=== PATIENT | male | born 1995 | race Hispanic/Latino ===

== ENCOUNTER 2021-11-09 16:12 | Emergency (ER) | payer OTHER ==
[~2021-11-09] VITALS: Ht 180.3 cm; Wt 72.6 kg
[2021-11-09] MEDS ORDERED: ACETAMINOPHEN 325 MG TAB PO ONE (16:30)
[2021-11-09] MEDS ORDERED: SODIUM CHLORIDE 0.9% 1000ML 1,000 ML IV ONE (16:45)
[2021-11-09] MEDS ORDERED: DIAZEPAM 5 MG TAB PO ONE (16:45)
[2021-11-09 16:49] LABS: BASOPHILS % 0.3 % (0.0-1.0); EOSINOPHILS # (AUTO) 0.8 (0.0-0.4); EOSINOPHILS % 5.1 % (0.0-6.0); HEMATOCRIT 42.1 % (38.2-49.6); HEMOGLOBIN 13.6 g/dL (14.0-18.0); MEAN CORPUSCULAR HEMOGLOBIN 29.1 pg (28-32); MEAN CORPUSCULAR HGB CONC 32.3 g/dL (31-35); MONOCYTES # (AUTO) 0.9 (0.2-0.8); NEUTROPHILS # (AUTO) 10.3 (2.1-6.9); NEUTROPHILS % 68.1 % (38.7-80.0); PLATELET COUNT 451 x10e3/uL (140-360); RED BLOOD COUNT 4.68 x10e6/uL (4.3-5.7); RED CELL DISTRIBUTION WIDTH 13.7 % (11.7-14.4)
[2021-11-09] MEDS ORDERED: ACETAMINOPHEN 325 MG TAB ONE (16:49)
[2021-11-09] MEDS ORDERED: SODIUM CHLORIDE 0.9% 1000ML 1,000 ML ONE (16:50)
[2021-11-09 16:56] LABS: INR 0.94; PARTIAL THROMBOPLASTIN TIME 31.5 seconds (23.8-35.5); PROTHROMBIN TIME 13.4 seconds (11.9-14.5)
[2021-11-09 17:04] LABS: ANION GAP 15.8 mmol/L (8-16); CALCIUM 8.9 mg/dL (8.4-10.2); CREATININE, SERUM 0.85 mg/dL (0.72-1.25); POTASSIUM 3.8 mmol/L (3.5-5.1)
[2021-11-09] MEDS ORDERED: AFRIN15 ML INH (17:36)
== END 2021-11-09 17:55 | disposition home or self-care (01) ==
LOC: ER 16:13
DX: R04.0 Epistaxis (principal); F14.10 Cocaine abuse, uncomplicated; J32.9 Chronic sinusitis, unspecified
CPT/HCPCS: 36415; 71045; 80048; 82550; 84484; 85025; 85610; 85730; 99284; J7030; 93005

== ENCOUNTER 2024-04-08 19:01 | Emergency (ER) | payer SELFPAY ==
[~2024-04-08] VITALS: Ht 180.3 cm; Wt 106.6 kg
[~2024-04-08 19:01] MED LIST: AFRIN15 ML INH
[2024-04-08 19:19] VITALS: PULSE 84; RESP 18; TEMP 98
[2024-04-08] MEDS ORDERED: DOXYCYCLINE HY100 MG PO (21:36)
[2024-04-08 21:45] VITALS: BP 118/66; PULSE 85; RESP 17; TEMP 98; O2SAT 100
== END 2024-04-08 21:43 | disposition home or self-care (01) ==
LOC: ER 21:39 → MERGE 21:39 → ER 21:43
DX: L02.415 Cutaneous abscess of right lower limb (principal); Z86.14 Personal history of Methicillin resistant Staphylococcus aureus infection; F17.210 Nicotine dependence, cigarettes, uncomplicated
CPT/HCPCS: 99282